=== PATIENT | female | born 1945 | race Caucasian/White ===

== ENCOUNTER → 2017-06-25 | Outpatient (CLI) | payer MEDICARE, OTHER ==
[~2017-06-25] MED LIST: MEDROL 4MG. DOSE4 MG PO; MELOXICAM15 MG PO; NORCO 325 MG-51 TAB PO; PRAVACHOL10 MG PO; PREDNISONE 10MG10 MG PO; VICODIN 5/500 T1 TAB PO; VICODIN 7.5/501 EACH PO
--- NOTE | 2017-06-25 15:46 | RADIOLOGY REPORT PS360 ---
DIG MAMM-DX BERTA W/CAD, US BREAST-LT COMPLETE W/AXILLA COMPARISON: None INDICATION: Left breast palpable abnormality ORDERING PHYSICIAN: Marlon Boyle MD PATIENT AGE: 72 years TECHNIQUE: Standard images performed along with spot compression views of the left breast and left breast ultrasound FINDINGS: There is average fibroglandular tissue. There is a macro lobular 17 x 15 mm nodule within the medial aspect of the left breast central one third. This corresponds to the patient's palpable abnormality. There is some asymmetric density in the inferior aspect of the left breast likely related to fibroglandular tissue. A densely calcified nodule present in the outer aspect of the left breast. There are multiple small lymph nodes bilaterally. The right breast has an unremarkable appearance. Left breast ultrasound: There is a macrolobulated hypoechoic mass within the 10:00 region of the left breast measuring 15 mm which is highly suspicious for malignancy. There is decreased through transmission of sound. No other nodules are evident. IMPRESSION: Left breast mass 15 mm in the 10:00 region of the left breast highly suspicious for malignancy BI-RADS CATEGORY: 5_Highly Suggestive Malignancy RECOMMENDED FOLLOWUP: Ultrasound guided mammotome biopsy of the left breast. (A letter has been sent to the patient regarding results of the study.)
== END ==
LOC: RAD 14:30
DX: N63.20 Unspecified lump in the left breast, unspecified quadrant (principal)
CPT/HCPCS: G0204